=== PATIENT | female | born 1985 | race Two or more races ===

== ENCOUNTER 2020-10-04 21:46 | Emergency (ER) | payer OTHER ==
[~2020-10-04] VITALS: Ht 157.5 cm; Wt 104.3 kg
[2020-10-04] MEDS ORDERED: PRENATABS FA T1 EACH PO (21:55)
== END 2020-10-05 02:58 | disposition home or self-care (01) ==
LOC: ER 21:46
DX: O20.0 Threatened abortion (principal)

== ENCOUNTER 2020-10-07 16:42 | Emergency (ER) | payer OTHER ==
[~2020-10-07] VITALS: Ht 157.5 cm; Wt 104.3 kg
[~2020-10-07 16:42] MED LIST: PRENATABS FA T1 EACH PO
== END 2020-10-07 19:14 | disposition home or self-care (01) ==
LOC: ER 16:42
DX: O20.0 Threatened abortion (principal)

== ENCOUNTER 2020-10-08 14:41 | Emergency (ER) | payer OTHER ==
[~2020-10-08] VITALS: Ht 157.5 cm; Wt 102.1 kg
== END 2020-10-08 19:38 | disposition home or self-care (01) ==
LOC: ER 14:41
DX: O03.6 Delayed or excessive hemorrhage following complete or unspecified spontaneous abortion (principal)

== ENCOUNTER 2020-11-27 23:58 | Emergency (ER) | payer OTHER ==
[~2020-11-27] VITALS: Ht 160 cm; Wt 91.2 kg
[2020-11-28] MEDS ORDERED: CIPRO500 MG PO (04:34)
[2020-11-28] MEDS ORDERED: KETO10TA2 PO (04:34)
== END 2020-11-28 04:37 ==
LOC: ER 23:58
DX: R10.32 Left lower quadrant pain (principal); N39.0 Urinary tract infection, site not specified

== ENCOUNTER 2021-03-30 12:07 | Emergency (ER) | payer OTHER ==
[~2021-03-30] VITALS: Ht 157.5 cm; Wt 93.4 kg
[~2021-03-30 12:07] MED LIST changes: +CIPRO500 MG PO; +KETO10TA2 PO
== END 2021-03-30 14:52 | disposition home or self-care (01) ==
LOC: ER 12:07
DX: K52.89 Other specified noninfective gastroenteritis and colitis (principal)

== ENCOUNTER 2021-05-03 19:04 | Emergency (ER) | payer OTHER ==
[~2021-05-03] VITALS: Ht 160 cm; Wt 106.6 kg
== END 2021-05-03 22:24 | disposition home or self-care (01) ==
LOC: ER 19:04
DX: R10.13 Epigastric pain (principal); F41.8 Other specified anxiety disorders